=== PATIENT | male | born 1970 | race Caucasian/White ===

== ENCOUNTER 2017-05-20 11:02 | Emergency (ER) | payer MEDICAID ==
[2017-05-20] MEDS ORDERED: Sodium Chloride 0.9% 1,000 ML IV STA (12:17)
[2017-05-20] MEDS ORDERED: Sodium Chloride 0.9% 1,000 ML ONE (12:30)
[2017-05-20 12:43] LABS: BASO # 0.1 K/uL (0.0-0.2); BASO % 0.5 % (0.0-2.0); EOS # 0.1 K/uL (0.0-0.7); EOS % 0.7 % (0.0-4.0); HEMATOCRIT 43.5 % (35.0-51.0); LYMPH # 1.5 K/uL (1.0-4.3); LYMPH % 15.2 % (20.0-40.0); MEAN CELL VOLUME 86.4 fL (80.0-94.0); MEAN CORPUSCULAR HEMOGLOBIN 28.5 pg (27.0-31.0); MEAN PLATELET VOLUME 7.7 fL (7.2-11.7); MONO # 0.4 K/uL (0.0-0.8); MONO % 4.2 % (0.0-10.0); RED CELL DISTRIBUTION WIDTH 13.5 % (11.5-14.5); WHITE BLOOD COUNT 10.1 K/uL (4.8-10.8)
[2017-05-20 12:48] LABS: RBC URINE < 1 /hpf (0-3); URINE BILIRUBIN NEGATIVE (NEGATIVE); URINE BLOOD NEGATIVE (NEGATIVE); URINE COLOR Amber (YELLOW); URINE GLUCOSE (UA) NORMAL (Normal); URINE KETONE NEGATIVE (NEGATIVE); URINE LEUKOCYTE ESTERASE NEG Leu/uL (Negative); URINE PROTEIN NEGATIVE (NEGATIVE); URINE UROBILINOGEN NORMAL mg/dL (0.2-1.0); WBC URINE 1 /hpf (0-5)
[2017-05-20 12:51] LABS: CHLORIDE 102 mmol/L (98-107); POTASSIUM 4.8 mmol/L (3.6-5.2); SODIUM 138 mmol/L (132-148)
[2017-05-20 12:53] LABS: ALB/GLOB RATIO 1.2 (1.0-2.1); AMYLASE 82 U/L (30-110); BILIRUBIN,TOTAL 0.5 mg/dL (0.2-1.3); CARBON DIOXIDE 29 mmol/L (22-30); GFR AFRICAN-AMERICAN > 60; TOTAL PROTEIN 7.3 g/dL (6.3-8.3)
[2017-05-20 12:54] LABS: ALKALINE PHOSPHATASE 93 U/L (38-126); ALT/SGPT 63 U/L (21-72); AST/SGOT 36 U/L (17-59); BLOOD UREA NITROGEN 14 mg/dL (9-20); CALCIUM 9.2 mg/dl (8.6-10.4); GLUCOSE,RANDOM 133 mg/dL (75-110)
[2017-05-20] MEDS ORDERED: Iohexol 240 (50 ml) PO STA (13:24)
--- NOTE | 2017-05-20 13:51 | C.PDOC ---
History Of Present Illness 46 y/o male presents to ED with complaints of left flank pain starting today when he woke up with associated nausea and vomiting. Patient denies fever, chills, sob, urinary symptoms, or any other complaints at this time. Time Seen by Provider: 05/20/17 11:47 Chief Complaint (Nursing): Male Genitourinary History Per: Patient History/Exam Limitations: no limitations Onset/Duration Of Symptoms: Hrs Current Symptoms Are (Timing): Still Present Past Medical History Reviewed: Historical Data, Nursing Documentation, Vital Signs Vital Signs: Last Vital Signs Temp 98.1 F 05/20/17 17:46 Pulse 60 05/20/17 17:46 Resp 16 05/20/17 17:46 BP 111/63 05/20/17 17:46 Pulse Ox 98 05/20/17 17:46 Surgical History: Back Surgery Family History: States: No Known Family Hx - Social History Hx Alcohol Use: No Hx Substance Use: No Review Of Systems Except As Marked, All Systems Reviewed And Found Negative. Constitutional: Negative for: Fever, Chills Respiratory: Negative for: Shortness of Breath Gastrointestinal: Positive for: Nausea, Vomiting, Other (Left flank pain). Negative for: Diarrhea Genitourinary: Negative for: Dysuria, Hematuria Skin: Negative for: Rash Physical Exam - Physical Exam Appears: Non-toxic, No Acute Distress Skin: Normal Color, Warm, No Rash Head: Atraumatic, Normacephalic Eye(s): bilateral: Normal Inspection Oral Mucosa: Moist Neck: Normal ROM, Supple Chest: Symmetrical Cardiovascular: Rhythm Regular Respiratory: Normal Breath Sounds, No Rales, No Rhonchi, No Wheezing Gastrointestinal/Abdominal: Tenderness (To left side of abdomen), No Guarding, No Rebound Back: CVA Tenderness (On left side), No Paraspinal Tenderness Extremity: Normal ROM, Capillary Refill (<2 seconds) Neurological/Psych: Oriented x3, Normal Motor, Normal Sensation ED Course And Treatment - Laboratory Results Result Diagrams: 05/20/17 12:39 05/20/17 12:39 O2 Sat by Pulse Oximetry: 100 (RA) Pulse Ox Interpretation: Normal - CT Scan/US Abdomen/pelvis CT Other Rad Studies (CT/US): Read By Radiologist, Radiology Report Reviewed CT/US Interpretation: Accession No. : [id number]. Patient Name / ID : ASHLEY RAMIREZ / [id number]. Exam Date : 05/20/2017 16:14:50 ( Approved ). Study Comment : Sex / Age : M / 46Y. Creator : Sasha Murphy MD. Dictator : Life Science Teacher : Maintenance And Operations Supervisor : Sasha Murphy MD. Approver2 : Report Date : 05/20/2017 16:46:37. My Comment : . PROCEDURE: CT Abdomen and Pelvis with oral and IV contrast. HISTORY: LLQ abdominal pain. COMPARISON: None available. TECHNIQUE: Contiguous axial images of the abdomen and pelvis. Oral and IV contrast was administered. Coronal and Sagittal reformats generated and reviewed. Contrast dose: 100 mL Omnipaque 350. Radiation dose: Total exam DLP = 1053.77 mGy-cm. This CT exam was performed using one or more of the following dose reduction techniques: Automated exposure control, adjustment of the mA and/or kV according to patient size, and/or use of iterative reconstruction technique. FINDINGS: LOWER THORAX : No visible consolidation, pleural effusion, or pneumothorax. LIVER: Hypoattenuation of the liver compatible with hepatic steatosis. GALLBLADDER AND BILE DUCTS: Unremarkable. PANCREAS: Unremarkable. SPLEEN: Unremarkable. ADRENALS: Unremarkable. KIDNEYS AND URETERS: The kidneys enhance symmetrically. 2 mm calculus within the urinary bladder mid distal to the UV junction, likely recently passed calculus. 3 mm nonobstructing left lower pole renal calculus. Mild fullness of the left renal collecting system. Left perinephric stranding. No hydronephrosis or obstructing calculus of the right kidney. BLADDER: See above. REPRODUCTIVE: The prostate gland measures approximately 3.7 x 4.7 cm. APPENDIX: The appendix appears within normal limits of caliber. No secondary signs of acute appendicitis. BOWEL: The stomach is nondistended. The bowel loops appear within normal limits of caliber without evidence of intestinal obstruction. PERITONEUM: No significant free fluid. No definite free air. LYMPH NODES: No bulky lymphadenopathy identified. VASCULATURE: No aortic aneurysm. BONES: Degenerative changes. Osseous demineralization. Vacuum disc phenomenon at L5- S1. OTHER FINDINGS: None. IMPRESSION: 2 mm calculus within the urinary bladder mid distal to the UV junction, likely recently passed calculus. 3 mm nonobstructing left lower pole renal calculus. Mild fullness of the left renal collecting system. Left perinephric stranding. Hypoattenuation of the liver compatible with hepatic steatosis. Medical Decision Making Medical Decision Making: Plan: * labs * CT scan * * * On re-evaluation, patient feels better and is stable to be d/c home with PMD / follow up. Disposition - Disposition Referrals: Lisa Feng MD [Staff Provider] - [facility] [place] [Outside] [facility] [Outside] Disposition: HOME/ ROUTINE Disposition Time: 17:24 Condition: IMPROVED Additional Instructions: Follow up with within 2-3 days. Return to ED if feel worse. Prescriptions: oxyCODONE/Acetaminophen [Percocet 5/325 mg Tab] 1 tab PO QID PRN #20 tab PRN Reason: Pain Ondansetron ODT [Zofran ODT] 4 mg PO .Q4-6H PRN #20 odt PRN Reason: Nausea/Vomiting Instructions: Renal Colic (ED), How to Strain Your Urine (ED) Forms: [facility] (Italian), Work Excuse - Clinical Impression Clinical Impression: Renal colic on left side - Scribe Statement The provider has reviewed the documentation as recorded by the Lan Claros All medical record entries made by the Lan were at my direction and personally dictated by me. I have reviewed the chart and agree that the record accurately reflects my personal performance of the history, physical exam, medical decision making, and the department course for this patient. I have also personally directed, reviewed, and agree with the discharge instructions and disposition.
[2017-05-20] MEDS ORDERED: Iohexol 240 (50 ml) ONE (14:03)
[2017-05-20] MEDS ORDERED: Iohexol 350mg/ml 100 ML ONE (16:07)
--- NOTE | 2017-05-20 16:48 | CT ---
PROCEDURE: CT Abdomen and Pelvis with oral and IV contrast. HISTORY: LLQ abdominal pain COMPARISON: None available. TECHNIQUE: Contiguous axial images of the abdomen and pelvis. Oral and IV contrast was administered. Coronal and Sagittal reformats generated and reviewed. Contrast dose: 100 mL Omnipaque 350 Radiation dose: Total exam DLP = 1053.77 mGy-cm. This CT exam was performed using one or more of the following dose reduction techniques: Automated exposure control, adjustment of the mA and/or kV according to patient size, and/or use of iterative reconstruction technique. FINDINGS: LOWER THORAX: No visible consolidation, pleural effusion, or pneumothorax. LIVER: Hypoattenuation of the liver compatible with hepatic steatosis. GALLBLADDER AND BILE DUCTS: Unremarkable. PANCREAS: Unremarkable. SPLEEN: Unremarkable. ADRENALS: Unremarkable. KIDNEYS AND URETERS: The kidneys enhance symmetrically. 2 mm calculus within the urinary bladder mid distal to the UV junction, likely recently passed calculus. 3 mm nonobstructing left lower pole renal calculus. Mild fullness of the left renal collecting system. Left perinephric stranding. No hydronephrosis or obstructing calculus of the right kidney. BLADDER: See above. REPRODUCTIVE: The prostate gland measures approximately 3.7 x 4.7 cm. APPENDIX: The appendix appears within normal limits of caliber. No secondary signs of acute appendicitis. BOWEL: The stomach is nondistended. The bowel loops appear within normal limits of caliber without evidence of intestinal obstruction. PERITONEUM: No significant free fluid. No definite free air. LYMPH NODES: No bulky lymphadenopathy identified. VASCULATURE: No aortic aneurysm. BONES: Degenerative changes. Osseous demineralization. Vacuum disc phenomenon at L5-S1. OTHER FINDINGS: None. IMPRESSION: 2 mm calculus within the urinary bladder mid distal to the UV junction, likely recently passed calculus. 3 mm nonobstructing left lower pole renal calculus. Mild fullness of the left renal collecting system. Left perinephric stranding. Hypoattenuation of the liver compatible with hepatic steatosis.
[2017-05-20 17:46] VITALS: BP 111/63; PULSE 60; RESP 16; TEMP 98.1
[2017-05-21 14:45] VITALS: O2SAT 100
== END 2017-05-20 18:11 | disposition home or self-care (01) ==
LOC: C.ER 11:02
DX: N20.0 Calculus of kidney (principal)
CPT/HCPCS: 74177; 80053; 81001; 82150; 83690; 85025; 96374; 96375; 96376; 99285; J1885; J2405; J7040; Q9966; Q9967

== ENCOUNTER 2017-06-10 11:55 | Emergency (ER) | payer MEDICAID ==
[2017-06-10 12:01] VITALS: RESP 18; TEMP 98.1; O2SAT 98
[2017-06-10] MEDS ORDERED: Sodium Chloride 0.9% 1,000 ML IV ONE (12:57)
[2017-06-10] MEDS ORDERED: Sodium Chloride 0.9% 1,000 ML ONE (13:10)
[2017-06-10 13:30] LABS: RBC URINE 2 /hpf (0-3); URINE BACTERIA RARE (<OCC); WBC URINE 1 /hpf (0-5)
[2017-06-10 13:31] LABS: PH,URINE 5.5 (5.0-8.0); URINE BILIRUBIN NEGATIVE (NEGATIVE); URINE BLOOD 1+ (NEGATIVE); URINE COLOR YELLOW (YELLOW); URINE GLUCOSE (UA) NEGATIVE (Normal); URINE KETONE NEGATIVE (NEGATIVE)
[2017-06-10 13:32] LABS: URINE LEUKOCYTE ESTERASE NEGATIVE Leu/uL (Negative); URINE PROTEIN NEGATIVE (NEGATIVE); URINE UROBILINOGEN 0.2 mg/dL (0.2-1.0)
[2017-06-10 13:37] LABS: BASO # 0.1 K/uL (0.0-0.2); BASO % 0.6 % (0.0-2.0); EOS # 0.1 K/uL (0.0-0.7); EOS % 0.9 % (0.0-4.0); HEMATOCRIT 39.4 % (35.0-51.0); LYMPH # 1.3 K/uL (1.0-4.3); LYMPH % 12.6 % (20.0-40.0); MEAN CELL VOLUME 85.5 fL (80.0-94.0); MEAN CORPUSCULAR HEMOGLOBIN 29.4 pg (27.0-31.0); MEAN CORPUSCULAR HGB CONC 34.4 g/dL (33.0-37.0); MEAN PLATELET VOLUME 8.1 fL (7.2-11.7); MONO # 0.7 K/uL (0.0-0.8); MONO % 6.1 % (0.0-10.0); RED CELL DISTRIBUTION WIDTH 13.4 % (11.5-14.5); WHITE BLOOD COUNT 10.7 K/uL (4.8-10.8)
--- NOTE | 2017-06-10 13:42 | CT ---
PROCEDURE: CT Abdomen and Pelvis without intravenous contrast HISTORY: llq abd pain hx recent ureteral stone COMPARISON: Abdomen pelvis CT with contrast 05/20/2017. TECHNIQUE: Helical CT of the abdomen pelvis was performed without oral or intravenous contrast.. Contrast Dose: None Radiation dose: Total exam DLP = 1054 mGy-cm. This CT exam was performed using one or more of the following dose reduction techniques: Automated exposure control, adjustment of the mA and/or kV according to patient size, and/or use of iterative reconstruction technique. FINDINGS: LOWER THORAX: Unremarkable. LIVER: Unremarkable. No gross lesion or ductal dilatation. GALLBLADDER AND BILE DUCTS: Unremarkable. PANCREAS: Unremarkable. No gross lesion or ductal dilatation. SPLEEN: Unremarkable. ADRENALS: Unremarkable. No mass. KIDNEYS AND URETERS: A 3 mm calcified at the left ear vessel junction with mild left hydroureteronephrosis persisting as well as left perinephric reaction. No intrarenal calculus is appreciated grossly at the left side. No right-sided obstructive uropathy. VASCULATURE: Unremarkable. No aortic aneurysm. BOWEL: Unremarkable. No obstruction. No gross mural thickening. APPENDIX: Normal appendix with oral contrast contained at the mid to distal segment. . PERITONEUM: Unremarkable. No free fluid. No free air. LYMPH NODES: Unremarkable. No enlarged lymph nodes. BLADDER: Unremarkable. REPRODUCTIVE: Unremarkable. BONES: No acute fracture. OTHER FINDINGS: None. IMPRESSION: 1. Persistent left hydroureteronephrosis which remains [id number] in severity due to a 3 mm calculus obstructing the left ureter is not junction once again. The calculus is unchanged in location. 2. Remainder the examination is stable as well. Lack of oral and intravenous contrast agents limits the full evaluation of the abdominal and pelvic viscera.
[2017-06-10 13:46] LABS: ALB/GLOB RATIO 1.2 (1.0-2.1); ALKALINE PHOSPHATASE 82 U/L (38-126); ALT/SGPT 48 U/L (21-72); AST/SGOT 28 U/L (17-59); BILIRUBIN,TOTAL 0.5 mg/dL (0.2-1.3); BLOOD UREA NITROGEN 16 mg/dL (9-20); CALCIUM 8.9 mg/dl (8.6-10.4); CARBON DIOXIDE 23 mmol/L (22-30); CHLORIDE 102 mmol/L (98-107); GFR AFRICAN-AMERICAN > 60; GLUCOSE,RANDOM 105 mg/dL (75-110); POTASSIUM 4.3 mmol/L (3.6-5.2); SODIUM 139 mmol/L (132-148); TOTAL PROTEIN 6.9 g/dL (6.3-8.3)
[2017-06-10 14:21] VITALS: BP 102/56; PULSE 52
--- NOTE | 2017-06-10 15:27 | C.PDOC ---
History Of Present Illness 46 year old male, with a history of kidney stones, presents to the ED with complaints of left sided abdominal pain for approximately one week with associated vomiting. Patient was seen in the ED on May 30 and diagnosed with bilateral kidney stones. He was instructed to pass the stones and has been filtering his urine. Patient states only one stone has passed and his percocet medication for pain is running out. He has not followed up outpatient as instructed and denies fever. Time Seen by Provider: 06/10/17 12:30 Chief Complaint (Nursing): Abdominal Pain History Per: Patient History/Exam Limitations: no limitations Onset/Duration Of Symptoms: Days, Intermittent Episodes Current Symptoms Are (Timing): Still Present Location Of Pain/Discomfort: LUQ, LLQ Radiation Of Pain To:: None Quality Of Discomfort: "Pain" Associated Symptoms: Vomiting. denies: Fever, Chills Recent travel outside of the [place]: No Additional History Per: Prior Records Past Medical History Reviewed: Historical Data, Nursing Documentation, Vital Signs Vital Signs: Last Vital Signs Temp 98.1 F 06/10/17 14:20 Pulse 52 L 06/10/17 14:20 Resp 18 06/10/17 14:20 BP 102/56 L 06/10/17 14:20 Pulse Ox 98 06/10/17 15:41 - Medical History PMH: Kidney Stones Surgical History: Back Surgery Family History: States: Other Other Family History: Non-contributory. - Social History Hx Alcohol Use: No Hx Substance Use: No - Immunization History Hx Tetanus Toxoid Vaccination: No Hx Influenza Vaccination: No Hx Pneumococcal Vaccination: No Review Of Systems Constitutional: Negative for: Fever, Chills Cardiovascular: Negative for: Chest Pain Respiratory: Negative for: Shortness of Breath Gastrointestinal: Positive for: Vomiting, Abdominal Pain. Negative for: Diarrhea Physical Exam - Physical Exam Appears: Non-toxic, No Acute Distress Skin: Warm, Dry Head: Atraumatic Eye(s): bilateral: Normal Inspection Oral Mucosa: Moist Neck: Supple Chest: Symmetrical, No Deformity Cardiovascular: Rhythm Regular Respiratory: Normal Breath Sounds, No Rales, No Rhonchi, No Wheezing Gastrointestinal/Abdominal: Soft, Tenderness (left sided abdominal tenderness ) , No Distention, No Guarding, No Rebound Back: CVA Tenderness (left CVA tenderness ) Neurological/Psych: Oriented x3, Normal Speech, Normal Cognition ED Course And Treatment - Laboratory Results Result Diagrams: 06/10/17 13:31 06/10/17 13:31 O2 Sat by Pulse Oximetry: 98 (room air ) - CT Scan/US CT Abdomen and Pelvis without intravenous contrast Other Rad Studies (CT/US): Read By Radiologist, Radiology Report Reviewed CT/US Interpretation: FINDINGS: LOWER THORAX: Unremarkable. LIVER: Unremarkable. No gross lesion or ductal dilatation. GALLBLADDER AND BILE DUCTS : Unremarkable. PANCREAS: Unremarkable. No gross lesion or ductal dilatation. SPLEEN: Unremarkable. ADRENALS: Unremarkable. No mass. KIDNEYS AND URETERS: A 3 mm calcified at the left ear vessel junction with mild left hydroureteronephrosis persisting as well as left perinephric reaction. No intrarenal calculus is appreciated grossly at the left side. No right-sided obstructive uropathy. VASCULATURE: Unremarkable. No aortic aneurysm. BOWEL: Unremarkable. No obstruction. No gross mural thickening. APPENDIX: Normal appendix with oral contrast contained at the mid to distal segment. . PERITONEUM: Unremarkable. No free fluid. No free air. LYMPH NODES: Unremarkable. No enlarged lymph nodes. BLADDER: Unremarkable. REPRODUCTIVE: Unremarkable. BONES: No acute fracture. OTHER FINDINGS: None. IMPRESSION: 1. Persistent left hydroureteronephrosis which remains [id number] in severity due to a 3 mm calculus obstructing the left ureter is not junction once again. The calculus is unchanged in location. 2. Remainder the examination is stable as well. Lack of oral and intravenous contrast agents limits the full evaluation of the abdominal and pelvic viscera. Progress Note: Abdomen Pelvis CT was ordered. Patient was given Toradol, Zofran , Flomax, and IV fluids. Medical Decision Making Medical Decision Making: Discussed with Dr. Adamson who recommends Flomax, Macrobid, and Vicodin. Dr. Adamson would like him to follow up in his office on Saturday. Disposition - Disposition Referrals: Bobo Adamson MD [Staff Provider] - Disposition: HOME/ ROUTINE Disposition Time: 15:15 Condition: STABLE Additional Instructions: Please follow up with the urologist this Saturday at 1pm in his office. Call to confirm the appointment. Return to the ER for any worsening symptoms or for any other concerns. Prescriptions: Hydrocodone/Acetaminophen [[place] 325 mg-5 mg] 1 - 2 tab PO Q4H PRN #12 tab PRN Reason: Pain, Severe (8-10) Nitrofurantoin Macrocrystals [Macrobid] 100 mg PO DAILY #7 cap Ondansetron ODT [Zofran ODT] 4 mg PO Q4H PRN #10 odt PRN Reason: Nausea/Vomiting Tamsulosin [Flomax] 0.4 mg PO BID #14 cap Instructions: Renal Colic (ED) Forms: Gen Discharge Inst French, [employer] (Bermudian) Print Language: GEORGIAN - Clinical Impression Clinical Impression: Renal colic - Scribe Statement The provider has reviewed the documentation as recorded by the Scribe Kylee Durán All medical record entries made by the Scribe were at my direction and personally dictated by me. I have reviewed the chart and agree that the record accurately reflects my personal performance of the history, physical exam, medical decision making, and the department course for this patient. I have also personally directed, reviewed, and agree with the discharge instructions and disposition.
== END 2017-06-10 15:16 | disposition home or self-care (01) ==
LOC: C.ER 11:55
DX: N13.2 Hydronephrosis with renal and ureteral calculous obstruction (principal); Z87.442 Personal history of urinary calculi
CPT/HCPCS: 74176; 80053; 81001; 85025; 87086; 96361; 96374; 96375; 99285; J1885; J2405; J7040

== ENCOUNTER 2018-12-12 03:02 | Inpatient (IN) | payer MEDICAID ==
[2018-12-12] MEDS ORDERED: Sodium Chloride 0.9% 1,000 ML IV ONE ×2 (03:32)
[2018-12-12 03:34] VITALS: O2SAT 97
--- NOTE | 2018-12-12 03:44 | C.PDOC ---
History Of Present Illness 48 year old male presents after overdosing by taking 18 tablets of ambien 5mg and 30 tablets of adderall 10mg 40 minutes ago. Patient reports he has done similar before in the past. Denies nausea, vomiting, or abdominal pain. Chief Complaint (Nursing): Substance Abuse History Per: Patient History/Exam Limitations: no limitations Onset/Duration Of Symptoms: Mins Current Symptoms Are (Timing): Still Present Modifying Factor(s): Other (Adderall, Ambien) Involuntary Hold By: None Recent travel outside of the [place]: No Past Medical History Reviewed: Historical Data, Nursing Documentation, Vital Signs Vital Signs: Last Vital Signs Temp 97.9 F 12/12/18 03:31 Pulse 70 12/12/18 03:31 Resp 16 12/12/18 03:31 BP 106/67 12/12/18 03:31 Pulse Ox 97 12/12/18 03:31 - Medical History PMH: Kidney Stones Surgical History: Back Surgery Family History: States: Unknown Family Hx - Social History Hx Alcohol Use: No Hx Substance Use: No - Immunization History Hx Tetanus Toxoid Vaccination: No Hx Influenza Vaccination: No Hx Pneumococcal Vaccination: No Review Of Systems Constitutional: Negative for: Fever, Chills Cardiovascular: Negative for: Chest Pain, Palpitations Respiratory: Negative for: Cough, Shortness of Breath Gastrointestinal: Negative for: Nausea, Vomiting Neurological: Negative for: Weakness, Numbness Physical Exam - Physical Exam Appears: Non-toxic Skin: Normal Color, Warm, Dry Head: Atraumatic, Normacephalic Eye(s): bilateral: Normal Inspection Oral Mucosa: Moist Neck: Normal, Supple Chest: Symmetrical, No Tenderness Cardiovascular: Rhythm Regular Respiratory: Normal Breath Sounds, No Rales, No Rhonchi, No Wheezing Gastrointestinal/Abdominal: Soft, No Tenderness Neurological/Psych: Oriented x3, Normal Speech, Other (Slightly lethargic but answers questions) ED Course And Treatment - Laboratory Results Result Diagrams: 12/12/18 04:20 12/12/18 04:20 ECG: Interpreted By Me, Viewed By Me ECG Rhythm: Sinus Rhythm ECG Interpretation: Normal, No Acute Changes Interpretation Of ECG: NSR, no acute changes, normal tracings. Rate From EC O2 Sat by Pulse Oximetry: 97 (Room air) Pulse Ox Interpretation: Normal - Radiology CXR: Interpreted by Me, Viewed By Me CXR Interpretation: Yes: No Acute Disease, Other (normal chest film). No: Infiltrates Progress Note: EKG, blood work, urinalysis, and CXR ordered. IV fluids administered. On reevaluation, patient is alert, conscious, no focal deficit. Disposition Discussed With : Leydi Quintero Doctor Will See Patient In The: Hospital Counseled Patient/Family Regarding: Diagnosis - Disposition Disposition: HOSPITALIZED Disposition Time: 05:41 Condition: STABLE Forms: [employer] (North Korean) - POA Present On Arrival: None - Clinical Impression Clinical Impression: Drug overdose, intentional - Scribe Statement The provider has reviewed the documentation as recorded by the Scribe Manolo Staley All medical record entries made by the Mjibe were at my direction and personally dictated by me. I have reviewed the chart and agree that the record accurately reflects my personal performance of the history, physical exam, medical decision making, and the department course for this patient. I have also personally directed, reviewed, and agree with the discharge instructions and disposition.
[2018-12-12 04:27] LABS: BASO # 0.1 K/uL (0.0-0.2); BASO % 0.9 % (0.0-2.0); EOS # 0.2 K/uL (0.0-0.7); EOS % 2.7 % (0.0-4.0); HEMOGLOBIN 13.5 g/dL (12.0-18.0); LYMPH # 1.7 K/uL (1.0-4.3); LYMPH % 27.2 % (20.0-40.0); MEAN CELL VOLUME 86.6 fL (80.0-94.0); MEAN CORPUSCULAR HEMOGLOBIN 28.9 pg (27.0-31.0); MEAN CORPUSCULAR HGB CONC 33.4 g/dL (33.0-37.0); MEAN PLATELET VOLUME 7.6 fL (7.2-11.7); MONO # 0.5 K/uL (0.0-0.8); MONO % 8.3 % (0.0-10.0); NEUT # 3.8 K/uL (1.8-7.0); NEUT % 60.9 % (50.0-75.0); NRBC % 0.1 % (0.0-2.0); RBC 4.65 Mil/uL (4.40-5.90); RED CELL DISTRIBUTION WIDTH 13.4 % (11.5-14.5); WHITE BLOOD COUNT 6.3 K/uL (4.8-10.8)
[2018-12-12 04:44] LABS: ALB/GLOB RATIO 1.6 (1.0-2.1); ALBUMIN 4.5 g/dL (3.5-5.0); ALT/SGPT 40 U/L (21-72); AST/SGOT 31 U/L (17-59); BLOOD UREA NITROGEN 16 mg/dL (9-20); GFR NON-AFRICAN AMERICAN > 60
[2018-12-12 04:57] LABS: URINE BILIRUBIN NEGATIVE (NEGATIVE); URINE BLOOD NEGATIVE (NEGATIVE); URINE CLARITY Hazy (Clear); URINE COLOR Yellow (YELLOW); URINE GLUCOSE (UA) NORMAL (Normal); URINE LEUKOCYTE ESTERASE NEG Leu/uL (Negative); URINE PROTEIN NEGATIVE (NEGATIVE); URINE UROBILINOGEN NORMAL mg/dL (0.2-1.0)
[2018-12-12 05:02] LABS: BARBITURATES, UR NEGATIVE (NEGATIVE); BENZODIAZEPINES, UR NEGATIVE (NEGATIVE); OPIATES, UR NEGATIVE (NEGATIVE); PHENCYCLIDINE, UR NEGATIVE (NEGATIVE)
[2018-12-12] MEDS ORDERED: Pneumococcal 23-Valent Vaccine SC ONE (09:09)
--- NOTE | 2018-12-12 10:16 | RAD ---
Date of service: 12/12/2018 PROCEDURE: CHEST RADIOGRAPH, 1 VIEW HISTORY: Detox/Psy COMPARISON: None available. FINDINGS: LUNGS: The lungs are well inflated and clear. PLEURA: No pneumothorax or pleural effusion. CARDIOVASCULAR: The heart is normal in size. No aortic atherosclerotic calcifications present. OSSEOUS STRUCTURES: Within normal limits for the patient's age. VISUALIZED UPPER ABDOMEN: Normal. OTHER FINDINGS: None. IMPRESSION: No active pulmonary disease.
--- NOTE | 2018-12-12 10:35 | CP.PCM.HP ---
History of Present Illness - History of Present Illness History of Present Illness: 48 year old male presents after overdosing by taking 18 tablets of ambien 5mg and 30 tablets of adderall 10mg 40 minutes ago. Patient reports he has done similar before in the past. Denies nausea, vomiting, or abdominal pain NO PREVIOUS H/O SUICIDAL ATTEMPT Present on Admission - Present on Admission Any Indicators Present on Admission: No Review of Systems - Review of Systems All systems: reviewed and no additional remarkable complaints except (DEPRESSION) Past Patient History - Infectious Disease Hx of Infectious Diseases: None - Past Medical History & Family History Past Medical History?: Yes - Past Social History Smoking Status: Former Smoker - RENAL Hx Kidney Stones: Yes - MUSCULOSKELETAL/RHEUMATOLOGICAL Hx Back Pain: Yes Hx Falls: No Hx Herniated Disk: Yes - PSYCHIATRIC Hx Substance Use: No - SURGICAL HISTORY Hx Musculoskeletal Surgery: Yes (L ankle sx) Other/Comment: brain, neck, foot surgeries - ANESTHESIA Hx Anesthesia: Yes Hx Anesthesia Reactions: No Hx Malignant Hyperthermia: No Has any member of the family had a problem w/ anesthesia?: No Meds Allergies/Adverse Reactions: Allergies Allergy/AdvReac Type Severity Reaction Status Date / Time No Known Allergies Allergy Verified 12/12/18 03:28 Physical Exam - Constitutional Appears: Well - Head Exam Head Exam: ATRAUMATIC, NORMAL INSPECTION, NORMOCEPHALIC - Eye Exam Eye Exam: EOMI, Normal appearance, PERRL - ENT Exam ENT Exam: Mucous Membranes Moist, Normal Exam - Neck Exam Neck exam: Positive for: Normal Inspection - Respiratory Exam Respiratory Exam: Clear to Auscultation Bilateral, NORMAL BREATHING PATTERN - Cardiovascular Exam Cardiovascular Exam: REGULAR RHYTHM - GI/Abdominal Exam GI & Abdominal Exam: Normal Bowel Sounds, Soft. absent: Tenderness - Rectal Exam Rectal Exam: NORMAL INSPECTION - Extremities Exam Extremities exam: Positive for: normal inspection - Neurological Exam Neurological exam: Alert, CN II-XII Intact, Normal Gait, Oriented x3, Reflexes Normal Results - Vital Signs Recent Vital Signs: Last Vital Signs Temp 98.0 F 12/12/18 06:51 Pulse 67 12/12/18 09:10 Resp 22 12/12/18 06:51 BP 118/51 L 12/12/18 06:51 Pulse Ox 97 12/12/18 06:51 - Labs Result Diagrams: 12/12/18 04:20 12/12/18 04:20 Labs: Laboratory Results - last 24 hr 12/12/18 12/12/18 12/12/18 04:20 04:20 04:22 WBC 6.3 RBC 4.65 Hgb 13.5 Hct 40.3 MCV 86.6 MCH 28.9 MCHC 33.4 RDW 13.4 Plt Count 258 MPV 7.6 Neut % (Auto) 60.9 Lymph % (Auto) 27.2 Anson % (Auto) 8.3 Eos % (Auto) 2.7 Baso % (Auto) 0.9 Neut # (Auto) 3.8 Lymph # (Auto) 1.7 Anson # (Auto) 0.5 Eos # (Auto) 0.2 Baso # (Auto) 0.1 Sodium 138 Potassium 3.9 Chloride 102 Carbon Dioxide 28 Anion Gap 12 BUN 16 Creatinine 0.9 Est GFR ( Amer) > 60 Est GFR (Non-Af Amer) > 60 POC Glucose (mg/dL) 114 H Random Glucose 104 Calcium 9.0 Phosphorus 3.9 Magnesium 1.9 Total Bilirubin 0.7 AST 31 ALT 40 Alkaline Phosphatase 82 Total Protein 7.3 Albumin 4.5 Globulin 2.8 Albumin/Globulin Ratio 1.6 Urine Color Urine Clarity Urine pH Ur Specific [employer] Urine Protein Urine Glucose (UA) Urine Ketones Urine Blood Urine Nitrate Urine Bilirubin Urine Urobilinogen Ur Leukocyte Esterase Urine WBC (Auto) Urine RBC (Auto) Urine Opiates Screen Urine Methadone Screen Ur Barbiturates Screen Ur Phencyclidine Scrn Ur Amphetamines Screen U Benzodiazepines Scrn U Oth Cocaine Metabols U Cannabinoids Screen Alcohol, Quantitative < 10 12/12/18 12/12/18 04:41 04:41 WBC RBC Hgb Hct MCV MCH MCHC RDW Plt Count MPV Neut % (Auto) Lymph % (Auto) Anson % (Auto) Eos % (Auto) Baso % (Auto) Neut # (Auto) Lymph # (Auto) Anson # (Auto) Eos # (Auto) Baso # (Auto) Sodium Potassium Chloride Carbon Dioxide Anion Gap BUN Creatinine Est GFR ( Amer) Est GFR (Non-Af Amer) POC Glucose (mg/dL) Random Glucose Calcium Phosphorus Magnesium Total Bilirubin AST ALT Alkaline Phosphatase Total Protein Albumin Globulin Albumin/Globulin Ratio Urine Color Yellow Urine Clarity Hazy Urine pH 5.0 Ur Specific [employer] 1.026 Urine Protein Negative Urine Glucose (UA) Normal Urine Ketones Negative Urine Blood Negative Urine Nitrate Negative Urine Bilirubin Negative Urine Urobilinogen Normal Ur Leukocyte Esterase Neg Urine WBC (Auto) 8 H Urine RBC (Auto) 1 Urine Opiates Screen Negative Urine Methadone Screen Negative Ur Barbiturates Screen Negative Ur Phencyclidine Scrn Negative Ur Amphetamines Screen Negative U Benzodiazepines Scrn Negative U Oth Cocaine Metabols Negative U Cannabinoids Screen 79.5 Alcohol, Quantitative Assessment & Plan (1) Drug overdose, intentional Status: Acute
--- NOTE | 2018-12-12 11:05 | PCM.PSYCH ---
Initial Psychiatric Evaluation - Initial Psychiatric Evaluation Type of Admission: Voluntary Legal Status: Capacity Chief Complaint (in patient's own words): "I'm fine" History of Present Illness and Precipitating Events: This is a 48 year old male who is with four children (16, 19, 20, and 30), lives in home with his family, and works as a local truck driver. He presented to the hospital for overdosing on medication. Psych was consulted to evaluation his suicide attempt. Patient admits to ingesting 18 tablets of Ambien 5 mg and 17 (or more per chart) tablets of Adderall 10 mg. Patient states he was in pain and took a lot of pills. Patient is aware that taking that amount of medication could kill him, but denies it was a suicide attempt. Patient denies prior history of suicide attempts. Patient admitted to getting into an argument with his over her washing his clothes before ingesting the medication. Patient confirms chronic pain from multiple cervical and lumbar disc herniations, left knee meniscal in jury, and left foot surgery with a plate and screws. He reports spending the last week in bed from the pain. He reports normal mood with normal anxiety about bills and moving into a new house. Patient denies suicidal or homicidal ideations, auditory or visual hallucinations, or paranoia. Patient denies drug use, but confirms smoking 3-4 cigarettes per day. We spoke to his (with a Wolof speaking medical staff) and she collaborated wth his story, but it is not clear if he reached out to her before us, as she did not respond for a long time. Nevertheless, she denied it was a suicide attempt, she denied he was depressed and she also denied there was a major argument before he attempted. Pt's story is somewhat unreliable as in the ED he said he took them to "sleep for a long time" and then he changed it to "because of pain." He minimizes the risks but agrees that he should not have done it and that he will not do it again. He is future oriented. Psych Hx: denies Fam Psych: denies PMHx: kidney stones, herniated discs Meds: omeprazole Allergies: denies SurgHx: left ankle surgery, neck surgery Current Medications: Active Medications Generic Name Dose Route Start Last Admin Trade Name Freq PRN Reason Stop Dose Admin Sodium Chloride 1,000 mls @ 100 mls/hr 12/12/18 03:32 12/12/18 05:01 Sodium Chloride 0.9% IV 12/12/18 13:31 100 mls/hr .Q10H ONE Administration Past Psychiatric History - Past Psychiatric History Previous Treatment History: None Pertinent Medical Hx (Current Medical&Sleep Prob, Allergies): Allergies Allergy/AdvReac Type Severity Reaction Status Date / Time No Known Allergies Allergy Verified 12/12/18 03:28 Omeprazole 40 mg PO DAILY 12/12/18 Review of Systems - Psychiatric Psychiatric: Abnormal Sleep Pattern, Anxiety, Irritability. absent: Hallucinations, Homicidal Ideation, Suicidal Ideation Mental Status Examination - Personal Presentation Personal Presentation: Looks stated age - Affect Affect: Constricted - Motor Activity Motor Activity: Calm - Reliability in Providing Information Reliability in Providing Information: Fair - Speech Speech: Organized - Mood Mood: Anxious - Formal Thought Process Formal Thought Process: No Impairment - Cognitive Functions Orientation: Person, Place, Situation, Time Sensorium: Alert Attention/Concentration: Attentive Estimate of Intelligence: Average Judgement: Imparied, as evidence by: Poor judgement Memory: Recent intact, as evidence by: Ability to recall events of the day, Remote impaired as evidenced by: Inability to recall sig life events - Risk Risk: Diminished functioning - Strength & Assets Inventory Strength & Assets Inventory: Family support, Employment history, Cooperative - Limitations Limitations: Other DSM 5 DX - DSM 5 DSM 5 Diagnosis: Adjustment disorder with depressed mood and anxiety - Recommended/Plan of Treatment Treatment Recommendations and Plan of Treatment: Discontinue 1 to 1 as he is no longer suicidal No psych meds necessary, other than prn Manager [facility] will see him again tomorrow. Discuss coping strategies Refer patient to pain management and outpatient psych Supportive therapy and psychoeducation Smoking cessation Nicotine patch 32 minutes
[2018-12-13 08:27] VITALS: TEMP 98.4
[2018-12-13 12:06] VITALS: BP 103/59; PULSE 61; RESP 12
--- NOTE | 2018-12-13 12:07 | PCM.PYCHPN ---
Psychiatric Progress Note - Psychiatric Progress Note Patient seen today, length of contact: 20 min Patient Chief Complaint: "I'm OK, I was never suicidal" Problems Identified/Issues Discussed: Pt is seen, he is cleared for d/c He agreed to go to [facility] for outpt psych. Number is given to his nurse. He is future-oriented, sounds positive and hopeful How to avoid such incidents in the future discussed Support and psychoed given Denies SI, HI, SP and other psych sxs Medication Change: No Medical Record Reviewed: Yes Mental Status Examination - Cognitive Function Orientation: Person, Place, Situation, Time Memory: Intact Attention: WNL Concentration: WNL Association: WNL Fund of Knowledge: WNL - Mood Mood: Anxious - Affect Affect: Constricted - Speech Speech: Appropriate - Formal Thought Process Formal Thought Process: No Impairment - Suicidal Ideation Suicidal Ideation: No - Homicidal Ideation Homicidal Ideation: No Goal/Treatment Plan - Goal/Treatment Plan Need for Continued Stay: Other (medical clearance) Progress Toward Problem(s) and Goals/Treatment Plan: Refer to [facility] for therapy Refer patient to pain management and outpatient psych Supportive therapy and psychoeducation Cleared for d/c
--- NOTE | 2018-12-13 13:02 | CP.PCM.PN ---
Subjective - Date & Time of Evaluation Date of Evaluation: 12/13/18 Time of Evaluation: 13:01 - Subjective Subjective: PATIENT SEEN AND EXAMINED AT THE BEDSIDE Objective - Vital Signs/Intake and Output Vital Signs (last 24 hours): Temp Pulse Resp BP Pulse Ox 98.4 F 61 12 103/59 L 97 12/13/18 12:00 12/13/18 12:00 12/13/18 12:00 12/13/18 12:00 12/12/18 06:51 Intake and Output: 12/13/18 12/13/18 06:59 18:59 Intake Total 800 10 Output Total 500 Balance 300 10 - Labs Labs: 12/12/18 04:20 12/12/18 04:20 Assessment and Plan - Assessment and Plan (Free Text) Assessment: FOLLOW UP WITH DR ELLSWORTH IN HIS OFFICE FOLLOW UP WIHTPAIN MANAGEMENT AND OUT PATIENT PSYCH, CALL AT [phone] BETWEEN 12NOON-3PM,[address] [place] [address] CONTINUE HOME MEDICATION ACTIVITY TOLERATED CALL DR ELLSWORTH OR GO TO THE EMERGENCY ROOM IF SYMPTOM RETURN OR WORSENING
--- NOTE | 2018-12-13 13:09 | CP.PCM.DIS ---
Provider - Provider Date of Admission: 12/12/18 05:41 Attending physician: Leydi Quintero MD Consults: 12/12/18 09:24 Physician Consult Routine Comment: Consulting Provider: Bhanu Sherman Consulting Physician: Bhanu Sherman Reason for Consult: POSSIBLE DRUG OD Time Spent in preparation of Discharge (in minutes): 30 Diagnosis - Discharge Diagnosis (1) Drug overdose, intentional Status: Acute Hospital Course - Lab Results Lab Results: Most Recent Lab Values WBC 6.3 K/uL (4.8-10.8) 12/12/18 04:20 RBC 4.65 Mil/uL (4.40-5.90) 12/12/18 04:20 Hgb 13.5 g/dL (12.0-18.0) 12/12/18 04:20 Hct 40.3 % (35.0-51.0) 12/12/18 04:20 MCV 86.6 fL (80.0-94.0) 12/12/18 04:20 MCH 28.9 pg (27.0-31.0) 12/12/18 04:20 MCHC 33.4 g/dL (33.0-37.0) 12/12/18 04:20 RDW 13.4 % (11.5-14.5) 12/12/18 04:20 Plt Count 258 K/uL (130-400) 12/12/18 04:20 MPV 7.6 fL (7.2-11.7) 12/12/18 04:20 Neut % (Auto) 60.9 % (50.0-75.0) 12/12/18 04:20 Lymph % (Auto) 27.2 % (20.0-40.0) 12/12/18 04:20 Ritchie % (Auto) 8.3 % (0.0-10.0) 12/12/18 04:20 Eos % (Auto) 2.7 % (0.0-4.0) 12/12/18 04:20 Baso % (Auto) 0.9 % (0.0-2.0) 12/12/18 04:20 Neut # (Auto) 3.8 K/uL (1.8-7.0) 12/12/18 04:20 Lymph # (Auto) 1.7 K/uL (1.0-4.3) 12/12/18 04:20 Ritchie # (Auto) 0.5 K/uL (0.0-0.8) 12/12/18 04:20 Eos # (Auto) 0.2 K/uL (0.0-0.7) 12/12/18 04:20 Baso # (Auto) 0.1 K/uL (0.0-0.2) 12/12/18 04:20 Sodium 138 mmol/L (132-148) 12/12/18 04:20 Potassium 3.9 mmol/L (3.6-5.2) 12/12/18 04:20 Chloride 102 mmol/L (98-107) 12/12/18 04:20 Carbon Dioxide 28 mmol/L (22-30) 12/12/18 04:20 Anion Gap 12 (10-20) 12/12/18 04:20 BUN 16 mg/dL (9-20) 12/12/18 04:20 Creatinine 0.9 mg/dL (0.8-1.5) 12/12/18 04:20 Est GFR ( Amer) > 60 12/12/18 04:20 Est GFR (Non-Af Amer) > 60 12/12/18 04:20 POC Glucose (mg/dL) 114 mg/dL (65-110) H 12/12/18 04:22 Random Glucose 104 mg/dL (75-110) 12/12/18 04:20 Calcium 9.0 mg/dl (8.6-10.4) 12/12/18 04:20 Phosphorus 3.9 mg/dL (2.5-4.5) 12/12/18 04:20 Magnesium 1.9 mg/dL (1.6-2.3) 12/12/18 04:20 Total Bilirubin 0.7 mg/dL (0.2-1.3) 12/12/18 04:20 AST 31 U/L (17-59) 12/12/18 04:20 ALT 40 U/L (21-72) 12/12/18 04:20 Alkaline Phosphatase 82 U/L (38-126) 12/12/18 04:20 Total Protein 7.3 g/dL (6.3-8.3) 12/12/18 04:20 Albumin 4.5 g/dL (3.5-5.0) 12/12/18 04:20 Globulin 2.8 gm/dL (2.2-3.9) 12/12/18 04:20 Albumin/Globulin Ratio 1.6 (1.0-2.1) 12/12/18 04:20 Urine Color Yellow (YELLOW) 12/12/18 04:41 Urine Clarity Hazy (Clear) 12/12/18 04:41 Urine pH 5.0 (5.0-8.0) 12/12/18 04:41 Ur Specific Polo 1.026 (1.003-1.030) 12/12/18 04:41 Urine Protein Negative mg/dL (NEGATIVE) 12/12/18 04:41 Urine Glucose (UA) Normal mg/dL (Normal) 12/12/18 04:41 Urine Ketones Negative mg/dL (NEGATIVE) 12/12/18 04:41 Urine Blood Negative (NEGATIVE) 12/12/18 04:41 Urine Nitrate Negative (NEGATIVE) 12/12/18 04:41 Urine Bilirubin Negative (NEGATIVE) 12/12/18 04:41 Urine Urobilinogen Normal mg/dL (0.2-1.0) 12/12/18 04:41 Ur Leukocyte Esterase Neg Val/uL (Negative) 12/12/18 04:41 Urine WBC (Auto) 8 /hpf (0-5) H 12/12/18 04:41 Urine RBC (Auto) 1 /hpf (0-3) 12/12/18 04:41 Urine Opiates Screen Negative (NEGATIVE) 12/12/18 04:41 Urine Methadone Screen Negative (NEGATIVE) 12/12/18 04:41 Ur Barbiturates Screen Negative (NEGATIVE) 12/12/18 04:41 Ur Phencyclidine Scrn Negative (NEGATIVE) 12/12/18 04:41 Ur Amphetamines Screen Negative (NEGATIVE) 12/12/18 04:41 U Benzodiazepines Scrn Negative (NEGATIVE) 12/12/18 04:41 U Oth Cocaine Metabols Negative (NEGATIVE) 12/12/18 04:41 U Cannabinoids Screen 79.5 (NEGATIVE) 12/12/18 04:41 Alcohol, Quantitative < 10 mg/dl (0-10) 12/12/18 04:20 - Hospital Course Hospital Course: 48 year old male presents after overdosing by taking 18 tablets of ambien 5mg and 30 tablets of adderall 10mg 40 minutes ago. Patient reports he has done similar before in the past. Denies nausea, vomiting, or abdominal pain NO PREVIOUS H/O SUICIDAL ATTEMPT PT WAS MONITORED IN ICU NO FURTHER EVENTS PSYCH EVALUATED PT AND D/LEONORA PT WAS D/C IN STABLE CONDITION PHYSICALLY AND MENTALLY Discharge Exam - Head Exam Head Exam: ATRAUMATIC, NORMAL INSPECTION, NORMOCEPHALIC Discharge Plan - Follow Up Plan Condition: STABLE Disposition: HOME/ ROUTINE Instructions: Depression, Screening for Depression, Suicide Prevention Additional Instructions: FOLLOW UP WITH DR QUINTERO IN HIS OFFICE FOLLOW UP WIHTPAIN MANAGEMENT AND OUT PATIENT PSYCH, CALL AT [phone] BETWEEN 12NOON-3PM,[address] [place] [address] CONTINUE HOME MEDICATION ACTIVITY TOLERATED CALL DR QUINTERO OR GO TO THE EMERGENCY ROOM IF SYMPTOM RETURN OR WORSENING Referrals: Bhanu Sherman MD [Staff Provider] - Leydi Quintero MD [Staff Provider] -
--- NOTE | 2018-12-13 16:48 | CARD ---
APPROVED REPORT Date of service: 12/12/2018 EKG Measurement Heart [id number] <Conclusion> Normal sinus rhythm Normal ECG
== END 2018-12-13 13:29 | disposition home or self-care (01) | DRG 450 ==
LOC: C.ER 03:02 → C.9E 05:41 → C.9I 06:36
PROVIDERS: ADMIT Internal Medicine Cardiovascular Disease; ATTEND Internal Medicine Cardiovascular Disease
DX: T42.6X2A Poisoning by other antiepileptic and sedative-hypnotic drugs, intentional self-harm, initial encounter (principal); T43.622A Poisoning by amphetamines, intentional self-harm, initial encounter; F43.23 Adjustment disorder with mixed anxiety and depressed mood; G89.29 Other chronic pain; F17.210 Nicotine dependence, cigarettes, uncomplicated; Y92.009 Unspecified place in unspecified non-institutional (private) residence as the place of occurrence of the external cause; Z87.442 Personal history of urinary calculi